=== PATIENT | female | born 1990 | race American Indian/Alaskan Native ===

== ENCOUNTER 2017-04-05 08:45 | Emergency (ER) | payer MEDICAID ==
[2017-04-05 09:03] VITALS: BP 112/71
--- NOTE | 2017-04-05 10:30 | Cat Scan Report ---
CT SCAN OF THE CERVICAL SPINE: HISTORY: Neck pain. TECHNIQUE: Contiguous 1.25 mm axial images of the cervical spine were obtained. Sagittal and coronal reformatted images. FINDINGS: There is normal alignment of the cervical spine. The body, pedicles and posterior ligaments appear normal. No evidence of fracture or subluxation is seen. The spinal canal appears normal. The prevertebral soft tissues appear normal. IMPRESSION: Unremarkable CT of the cervical spine. No acute process is noted.
--- NOTE | 2017-04-05 10:54 | Cat Scan Report ---
CT HEAD WITHOUT CONTRAST: HISTORY: Head injury, fall, loss of consciousness, pain. Serial contiguous axial images were obtained through the cranium. Intravenous contrast material was not administered. The ventricles are normal in size and appearance. There is no mass effect or midline shift. No areas of abnormally increased or decreased attenuation are seen. No mass lesion is seen. The mastoid air cells and visualized portions of the sinuses are normal. IMPRESSION: Cranial CT scan within normal limits.
--- NOTE | 2017-04-05 10:56 | Cat Scan Report ---
CT FACIAL BONES WITHOUT CONTRAST: HISTORY: Facial injury, pain, fall. TECHNIQUE: Helical CT images with sagittal and coronal CT reformations. FINDINGS: All paranasal sinuses are clear. No sinus wall fracture, fluid level or opacification. The orbital cavities are symmetric and intact. The mandible is intact. The skull base and upper cervical spine demonstrate no evidence for acute injury. IMPRESSION: Unremarkable CT of the facial bones.
--- NOTE | 2017-04-05 11:14 | Emergency Department Report ---
ED Head Trauma HPI - General Chief complaint: Fall Stated complaint: FALL LIP LAC Time Seen by Provider: 04/05/17 11:09 Source: patient Mode of arrival: Ambulatory Limitations: No Limitations - History of Present Illness Initial comments: 27-year-old female past medical history none presents with complaint of laceration to lower lip and a loose left upper incisor status post mechanical fall 5 AM this morning. Patient states that she was playing around with friends outside of her home while drinking tripped forward and fell onto ground face first. Patient has small anterior lower lip laceration visible on external exam. Patient is awake alert and oriented 3 fully lucid cooperative, ambulatory. Onset/Timin -: hour(s), This morning Mechanism of Injury: mechanical fall Location: face Loss of Consciousness: no Previous Trauma to this Area: No Place: home Severity: mild Severity scale (0 -10): 2 Quality: aching Other Injuries: laceration (lower lip), dental (left upper incisior and right lower incisor pain) Associated Symptoms: denies other symptoms - Related Data Previous Rx's Medication Instructions Recorded Last Taken Type Acetaminophen/Codeine [Tylenol 1 tab PO Q6H PRN #10 tab 04/05/17 Unknown Rx /Codeine # 3 tab] Amoxicillin [Trimox CAP] 500 mg PO Q8H #30 capsule 04/05/17 Unknown Rx Benzocaine [Orajel Liquid 20%] 1 ml MM Q6HR PRN #1 bottle 04/05/17 Unknown Rx Chlorhexidine Mouthwash [Peridex] 15 ml MM BID #1 bottle 04/05/17 Unknown Rx Ibuprofen [Motrin] 600 mg PO Q8H PRN #25 tablet 04/05/17 Unknown Rx Allergies/Adverse reactions: Allergies Allergy/AdvReac Type Severity Reaction Status Date / Time No Known Allergies Allergy Unverified 04/05/17 08:57 ED Review of Systems ROS: Stated complaint: FALL LIP LAC Other details as noted in HPI Constitutional: denies: chills, fever Eyes: denies: eye pain, eye discharge, vision change ENT: denies: ear pain, throat pain Respiratory: denies: cough, shortness of breath, wheezing Cardiovascular: denies: chest pain, palpitations Endocrine: no symptoms reported Gastrointestinal: denies: abdominal pain, nausea, diarrhea Genitourinary: denies: urgency, dysuria, discharge Musculoskeletal: denies: back pain, joint swelling, arthralgia Skin: denies: rash, lesions Neurological: denies: headache, weakness, paresthesias Psychiatric: denies: anxiety, depression Hematological/Lymphatic: denies: easy bleeding, easy bruising ED Past Medical Hx - Past Medical History Previous Medical History?: No - Surgical History Past Surgical History?: No - Social History Smoking Status: Never Smoker Substance Use Type: Alcohol - Medications Home Medications: Home Medications Medication Instructions Recorded Confirmed Last Taken Type Acetaminophen/Codeine [Tylenol 1 tab PO Q6H PRN #10 tab 04/05/17 Unknown Rx /Codeine # 3 tab] Amoxicillin [Trimox CAP] 500 mg PO Q8H #30 capsule 04/05/17 Unknown Rx Benzocaine [Orajel Liquid 20%] 1 ml MM Q6HR PRN #1 bottle 04/05/17 Unknown Rx Chlorhexidine Mouthwash [Peridex] 15 ml MM BID #1 bottle 04/05/17 Unknown Rx Ibuprofen [Motrin] 600 mg PO Q8H PRN #25 tablet 04/05/17 Unknown Rx ED Physical Exam - General Limitations: No Limitations General appearance: alert, in no apparent distress - Head Head exam: Present: atraumatic, normocephalic - Eye Eye exam: Present: normal appearance, PERRL, EOMI - ENT ENT exam: Present: mucous membranes moist - Expanded ENT Exam Expanded Teeth exam: Present: dental tenderness # (, 25) 1 - Other (tooth losoe on palpation) 2 - Dental Tenderness (tooth painful on palpation) - Neck Neck exam: Present: normal inspection, full ROM - Respiratory Respiratory exam: Present: normal lung sounds bilaterally. Absent: respiratory distress - Cardiovascular Cardiovascular Exam: Present: regular rate, normal rhythm. Absent: systolic murmur, diastolic murmur, rubs, gallop - GI/Abdominal GI/Abdominal exam: Present: soft, normal bowel sounds - Extremities Exam Extremities exam: Present: normal inspection - Back Exam Back exam: Present: normal inspection - Neurological Exam Neurological exam: Present: alert, oriented X3, CN II-XII intact, normal gait - Psychiatric Psychiatric exam: Present: normal affect, normal mood - Skin Skin exam: Present: warm, dry, intact, normal color. Absent: rash ED Course Vital Signs 04/05/17 08:57 Temperature 98.8 F Pulse Rate 89 Respiratory 18 Rate Blood Pressure 112/71 O2 Sat by Pulse 99 Oximetry - Laceration /Wound Repair Right Lower Face Wound Location: face (right lower lip) Wound Length (cm): 1 Wound's Depth, Shape: superficial Wound Explored: clean Irrigated w/ Saline (ccs): 20 Betadine Prep?: Yes Anesthesia: 1% Lidocaine Volume Anesthetic (ccs): 2 Wound Debrided: minimal Wound Repaired With: sutures Suture Size/Type: 4:0, proline Number of Sutures: 1 Layer Closure?: No Sterile Dressing Applied?: No - Lab Data Lab Results 04/05/17 Range/Units 09:16 HCG, Qual Negative (Negative) - Medical Decision Making A/P: Facial contusion, anterior lower lip laceration 1- Motrin when necessary, amoxicillin ten-day course, Orajel when necessary, Peridex mouthwash daily basis, short course codeine when necessary 2- I provided patient with information for multiple dental clinics to follow up and stressed the importance of dental follow-up to mitigate loss of tooth 3- suture to be removed in 7 days lower lip 4- CTs show no fractures, face, jaw, cranial, c spine - NEXUS Criteria Focal neurological deficit present: No Midline spinal tenderness present: No Altered level of consciousness: No Intoxication present: No Distracting injury present: No NEXUS results: C-Spine can be cleared clinically by these results. Imaging is not required. Critical care attestation.: If time is entered above; I have spent that time in minutes in the direct care of this critically ill patient, excluding procedure time. ED Disposition Clinical Impression: Tooth injury Qualifiers: Encounter type: initial encounter Qualified Code(s): S09.93XA - Unspecified injury of face, initial encounter Contusion of face Qualifiers: Encounter type: initial encounter Qualified Code(s): S00.83XA - Contusion of other part of head, initial encounter Laceration of lip Qualifiers: Encounter type: initial encounter Qualified Code(s): S01.511A - Laceration without foreign body of lip, initial encounter Disposition: TO HOME OR SELFCARE Is pt being admited?: No Does the pt Need Aspirin: No Condition: Stable Instructions: Laceration (ED), Suture Care (ED), Acute dental trauma (ED), Toothache (ED), Concussion (ED), Minor Head Injury (ED) Prescriptions: Acetaminophen/Codeine [Tylenol /Codeine # 3 tab] 1 tab PO Q6H PRN #10 tab PRN Reason: Pain Amoxicillin [Trimox CAP] 500 mg PO Q8H #30 capsule Benzocaine [Orajel Liquid 20%] 1 ml MM Q6HR PRN #1 bottle PRN Reason: Pain Chlorhexidine Mouthwash [Peridex] 15 ml MM BID #1 bottle Ibuprofen [Motrin] 600 mg PO Q8H PRN #25 tablet PRN Reason: Pain Referrals: [facility] [Provider Group] - 3-5 Days [facility] [Outside] - 3-5 Days [place] [Outside] - 3-5 Days Forms: Accompanied Note, Work/School Release Form(ED) Time of Disposition: 12:18
[2017-04-05] MEDS ORDERED: MOTRIN PO ONE (11:17)
[2017-04-05] MEDS ORDERED: BOOSTRIX IM ONE (11:21)
== END 2017-04-05 12:50 | disposition home or self-care (01) ==
LOC: ED 08:45
DX: S09.93XA Unspecified injury of face, initial encounter (principal); S01.511A Laceration without foreign body of lip, initial encounter; S00.83XA Contusion of other part of head, initial encounter; W19.XXXA Unspecified fall, initial encounter; Y93.89 Activity, other specified; Y99.8 Other external cause status; Y92.009 Unspecified place in unspecified non-institutional (private) residence as the place of occurrence of the external cause
CPT/HCPCS: 36415; 70450; 70486; 72125; 84703; 90471